=== PATIENT | male | born 1960 | race Caucasian/White ===

== ENCOUNTER → 2019-11-25 06:57 | Outpatient (CLI) | payer OTHER, SELFPAY ==
--- NOTE | ~2019-11-25 | XR_ITS ---
EXAMINATION: XR shoulder LT min 2V DATE: 11/25/2019 07:16 INDICATION: Left shoulder pain. TECHNIQUE: 4 views of left shoulder were obtained. COMPARISON: None. FINDINGS: Bone alignment is normal. No fracture. Joint spaces are well maintained. IMPRESSION: 1. Normal left shoulder. Reviewed, dictated and finalized at location A. 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 Normal left shoulder.
== END ==
PROVIDERS: PCP Family Medicine; Visit Provider Family Medicine
DX: M25.512 Pain in left shoulder (principal)
CPT/HCPCS: 73030

== ENCOUNTER → 2020-07-12 16:34 | Outpatient (CLI) | payer OTHER, SELFPAY ==
--- NOTE | ~2020-07-12 | XR_ITS ---
XR chest 2V 07/12/2020 16:48 Indication: Shortness of breath. Asthma. Procedure: 2 view chest Comparison: 09/29/2008 Findings: Heart size normal. Right basilar atelectasis. No focal pneumonia,, edema, pleural effusion or pneumothorax. No acute osseous abnormality. Impression: 1: Right basilar atelectasis. Reviewed, dictated and finalized at location B. Impression: 1: Right basilar atelectasis.
== END ==
PROVIDERS: PCP Family Medicine; Visit Provider Physician Assistant
DX: J45.909 Unspecified asthma, uncomplicated (principal); R06.02 Shortness of breath; J98.11 Atelectasis
CPT/HCPCS: 71046

== ENCOUNTER 2020-08-24 07:56 | Outpatient (CLI) | payer OTHER, SELFPAY ==
--- NOTE | 2020-08-25 10:31 | WPDPFTINT ---
PFT Interpretation PFT Interpretation: This PFT met all criteria for ATS standards and reproducibility FEV/FVC post bronchodilator 56% FEV1 69% or 2.09 liters FVC 89% or 3.77 liters No bronchodilator challenge was given. TLC 115% RV 145% RV/TLC 45 % DLCO 96% when adjusted for alveolar volume but not adjusted for hemoglobin Flow volume loops showed significant air flow obstruction Impression: Moderate airflow obstruction with air trapping. Unfortunately no bronchodilator challenge was ordered and hence this may be due Asthma or COPD. I would recommend repeating Spirometry with pre and post bronchdilator to better differentiate between the two. Clinical correlation is advised.
== END 2020-08-24 07:57 | disposition home or self-care (01) ==
PROVIDERS: PCP Family Medicine; Visit Provider Family Medicine
DX: J45.20 Mild intermittent asthma, uncomplicated (principal)
CPT/HCPCS: 94375; 94726; 94729

== ENCOUNTER 2020-10-10 09:07 | Outpatient (CLI) | payer OTHER, SELFPAY ==
--- NOTE | 2020-11-12 11:04 | WPDHOMESLEEP ---
Sleep Study - Home Unattended Date of Study: 10/10/20 Ordering Provider: Joni Wick PA-C Interpreting Provider: Alyson Wong MD Home Sleep Study Type: Apnea Link Air Height: 1.7 m Weight: 83.461 kg Body Mass Index: 28.8 Neck Circumference (inches): 15 [place]: 11 Reason for Sleep Study Vivid dreams that startle him from sleep, waking up feeling like he is falling Sleep History Gabe Gandhi is a 60 year old man Who has a chief complaint with sleep of waking up feeling startled like he is falling. He rarely snores loudly enough that others complain, occasionally snores. He frequently awakens at night with heartburn, belching or coughing. He occasionally has trouble sleeping with a cold. He frequently has breathing problems at night observed by others. He occasionally sweats excessively at night. He frequently notices his heart pounding or beating irregularly at night. He rarely falls asleep during the day. He does not fall asleep involuntarily, while driving, while exerting physical effort. He does not have loss of muscle tone with strong emotion. 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 He occasionally feels paralyzed on waking or falling asleep. He constantly has vivid dreamlike scenes upon awakening or falling asleep. He does not feel afraid to go to sleep. He never has nightmares. He frequently remembers his dreams. He frequently has racing thoughts. He frequently feels sad, depressed, and anxious. He occasionally has muscular tension. He occasionally notices parts of his body jerking. He does not kick at night, does not have crawling and aching feelings in his legs or have any type of leg pain during the night. He frequently has morning jaw pain. He rarely grinds his teeth at night. He occasionally is bothered by pain during the day. He rarely is awakened by pain at night. He rarely is wakes up feeling stiff in the morning with sore achy muscles. He frequently wakes up with pain in the neck and spine joints. He has dizziness, fatigue, concentration difficulties and takes antacids regularly. Normal bedtime is 10:00 p.m., falling asleep within 15-30 minutes. He wakes up multiple times throughout the night. While awake he will adjust pillows, drink some water. Sometimes his episodes of wake her very brief but occasionally he cannot return to sleep. He wakes the morning at 6:30 a.m.. On the weekends he goes to bed an hour later at 11:00 p.m. and wakes at the same time 6:30 a.m.. He estimates average of 7 hours of sleep at night. He takes naps on the weekend. A short nap can be refreshing. He occasionally awakens feeling refreshed. He frequently has daytime sleepiness. He feels better in the morning compared to other times of day. Habits: He never smoked tobacco. Caffeine 4 cups of decaf coffee daily. [facility] Past Medical History Medical History (Updated 11/12/20 @ 17:53 by Alyson Wong MD) Asthma Basal cell carcinoma (BCC) in situ of skin GERD without esophagitis Hypertension Skin cancer, basal cell Surgical History Surgical History History of removal of cyst Family History Family History Father Family history of cardiovascular disease Family history of coronary artery disease Mother Family history of congestive heart failure Sibling Multiple myeloma Social History Social History Smoking status: Never smoker Second hand tobacco smoke exposure: No Alcohol intake: current Drinks per week: 3 Substance use: never Substance use type: does not use Gender identity (if verbalized by the patient): Male Spiritual care concerns: Yes Agree to blood products: Yes Medications Home Medications Medication Instructions Recorded Confirmed Type loratadine 10 mg t
[2020-11-12 18:09] VITALS: BMI 28.8
== END 2020-10-10 09:08 | disposition home or self-care (01) ==
LOC: ANHCSM 09:09
PROVIDERS: PCP Physician Assistant; Visit Provider Physician Assistant
DX: G47.33 Obstructive sleep apnea (adult) (pediatric) (principal)
CPT/HCPCS: 95806

== ENCOUNTER 2021-01-13 09:33 | Outpatient (CLI) | payer OTHER, SELFPAY ==
--- NOTE | 2021-01-15 13:54 | WPDPFTINT ---
PFT Interpretation This PFT met all criteria for ATS standards and reproducibility FEV/FVC post bronchodilator 59% FEV1 65% FVC 86% TLC 97% RV 123% RV/TLC 40% DLCO 81% when adjusted for alveolar volume but not adjusted for hemoglobin Flow volume loops showed significant expiratory coving Impression: Moderate airflow obstruction with some air trapping. There was no significant response to bronchodilator therapy. When compared to a pulmonary function test from 08/24/2020 there has been no significant change. This pattern may be suggestive of COPD. Clinical correlation is advised. PFT Procedure Performed PFT Procedure Performed Spirometry with Pre/Post Bronchodilator Plethysmography (Lung Vol) Diffusing Cap (DLCO) Flow Vol Loop
== END 2021-01-13 09:34 | disposition home or self-care (01) ==
LOC: ANHPFT 09:34
PROVIDERS: PCP Physician Assistant; Visit Provider Physician Assistant
DX: R06.00 Dyspnea, unspecified (principal)
CPT/HCPCS: 94060; 94726; 94729

== ENCOUNTER 2021-02-15 13:02 | Outpatient (CLI) | payer OTHER, SELFPAY ==
--- NOTE | ~2021-02-15 | XR_ITS ---
EXAMINATION: XR lg joint inject/asp w image DATE: 02/15/2021 13:47 INDICATION: Left frozen shoulder TECHNIQUE: A time-out was performed to verify the patient's name, date of , and procedure to b e performed. The procedure including the risks, benefits, and alternatives was discussed with the pat ient. Risks discussed included bleeding and infection. The patient understood the risks and agreed to proceed. The skin overlying the rotator cuff interval of the left glenohumeral joint was prepped an d draped in usual sterile fashion. Anesthetic was administered with 1% lidocaine subcutaneously. A 22 G needle was advanced under fluoroscopic guidance into the joint. Injection of 1 mL of Omnipaque 240 confirmed intra-articular position of the needle. Subsequently, injectate consisting of 4 mL of a 3:1 mixture of 1% lidocaine 80 mg/mL Depo-Medrol for a total dose of 80 mg Depo-Medrol was instille d. Washout of contrast was seen confirming intra-articular administration. The needle was removed and the entry site was cleaned and dressed. There were no immediate complications. Fluoroscopy exposure time was 0.1 minutes. The total number of images was 1. FINDINGS: Real-time fluoroscopy demonstrates the needle in the left glenohumeral joint. Patient's hernando n prior to procedure:6/10. Patient's pain following the procedure: 11/30. IMPRESSION: 1. Left glenohumeral injection of local anesthetic and steroid with decrease in the patient's present ing pain. Reviewed, dictated and finalized at location A. IMPRESSION: 1. Left glenohumeral injection of local anesthetic and steroid with decrease in the patient's presenting pain.
== END 2021-02-15 13:03 | disposition home or self-care (01) ==
PROVIDERS: PCP Physician Assistant; Visit Provider Orthopaedic Surgery
DX: M75.02 Adhesive capsulitis of left shoulder (principal)
CPT/HCPCS: 20610; 77002; J1040; Q9966

== ENCOUNTER 2021-05-17 07:09 | Outpatient (CLI) | payer OTHER, SELFPAY ==
--- NOTE | 2021-06-13 08:38 | WPDSLEEPSTUD ---
Sleep Study Date of Study: 05/17/21 Ordering Provider: Joni Wick PA-C Interpreting Physician: Alyson Wong MD Sleep Study Type: CPAP Titration Height: 1.7 m Weight: 83.007 kg Body Mass Index: 28.6 Neck Circumference (inches): 15 [place]: 11 Reason for Sleep Study Obstructive sleep apnea * home sleep test 10/10/2020 with Apnea[facility] mild obstructive sleep apnea with an AHI of 8.1, minimum desaturation 89%; he presents for a CPAP titration. Sleep History Gabe Gandhi is a 61 year old man Who has a chief complaint with sleep of waking up feeling startled like he is falling. He rarely snores loudly enough that others complain, occasionally snores. He frequently awakens at night with heartburn, belching or coughing. He occasionally has trouble sleeping with a cold. He frequently has breathing problems at night observed by others. He occasionally sweats excessively at night. He frequently notices his heart pounding or beating irregularly at night. He rarely falls asleep during the day. He does not fall asleep involuntarily, while driving, while exerting physical effort. He does not have loss of muscle tone with strong emotion. 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 He occasionally feels paralyzed on waking or falling asleep. He constantly has vivid dreamlike scenes upon awakening or falling asleep. He does not feel afraid to go to sleep. He never has nightmares. He frequently remembers his dreams. He frequently has racing thoughts. He frequently feels sad, depressed, and anxious. He occasionally has muscular tension. He occasionally notices parts of his body jerking. He does not kick at night, does not have crawling and aching feelings in his legs or have any type of leg pain during the night. He frequently has morning jaw pain. He rarely grinds his teeth at night. He occasionally is bothered by pain during the day. He rarely is awakened by pain at night. He rarely is wakes up feeling stiff in the morning with sore achy muscles. He frequently wakes up with pain in the neck and spine joints. He has dizziness, fatigue, concentration difficulties and takes antacids regularly. Normal bedtime is 10:00 p.m., falling asleep within 15-30 minutes. He wakes up multiple times throughout the night. While awake he will adjust pillows, drink some water. Sometimes his episodes of wake her very brief but occasionally he cannot return to sleep. He wakes the morning at 6:30 a.m.. On the weekends he goes to bed an hour later at 11:00 p.m. and wakes at the same time 6:30 a.m.. He estimates average of 7 hours of sleep at night. He takes naps on the weekend. A short nap can be refreshing. He occasionally awakens feeling refreshed. He frequently has daytime sleepiness. He feels better in the morning compared to other times of day. Habits: He never smoked tobacco. Caffeine 4 cups of decaf coffee daily. [facility] Past Medical History Medical History Asthma Basal cell carcinoma (BCC) in situ of skin Benign hypertension GERD with esophagitis GERD without esophagitis Hypertension Mild intermittent asthma in adult without complication Skin cancer, basal cell Surgical History Surgical History History of removal of cyst Family History Family History Father Family history of cardiovascular disease Family history of coronary artery disease Mother Family history of congestive heart failure Sibling Multiple myeloma Social History Social History Smoking status: Never smoker Second hand tobacco smoke exposure: No Alcohol intake: current Drinks per week: 3 Alcohol use details: On occasion. Substance use: never Substance use type: does not use Gender i
[2021-06-14 14:43] VITALS: BMI 28.6
== END 2021-05-18 07:32 | disposition home or self-care (01) ==
LOC: ANHCSM 07:10
PROVIDERS: PCP Physician Assistant; Visit Provider Physician Assistant
DX: G47.33 Obstructive sleep apnea (adult) (pediatric) (principal); Z68.28 Body mass index [BMI] 28.0-28.9, adult
CPT/HCPCS: 95811

== ENCOUNTER 2023-05-10 00:37 | Day surgery (SDC) | payer OTHER, SELFPAY ==
[2023-04-24 13:21] VITALS: BMI 28.3
[2023-05-10 06:48] VITALS: BP 117/80; PULSE 64; RESP 19; TEMP 36.2; O2SAT 98
[2023-05-10] MEDS: LACTATED RINGERS 1,000 ML 150 ML IV CONT (06:58)
--- NOTE | 2023-05-10 07:34 | WPDANESEPPF ---
Anes - Initial Pre Proc Eval Procedure: Operation Date: 05/10/23 08:00 Proposed Procedures p Esophagogastroduodenoscopy & Screening Colonoscopy - Dimitri Recinos MD Date/Time: 05/10/23 07:34 Surgeon: Dimitri Recinos MD Pre Op Diagnosis: GERD, neoplasm screening Patient Data Age: 62 Gender: M Height: 1.7 m Weight: 81.3 kg Last Vital Signs Temp 97.2 F L 05/10/23 06:48 Pulse 64 05/10/23 06:48 Resp 19 05/10/23 06:48 BP 117/80 05/10/23 06:48 Pulse Ox 98 05/10/23 06:48 O2 Del Method Room Air 05/10/23 06:48 Allergies Allergy/AdvReac Type Severity Reaction Status Date / Time Penicillins Allergy Unknown Unknown Verified 05/10/23 06:47 Home Medications Medication Instructions Recorded Confirmed Type fluticasone propionate 50 1 spray intranasal DAILY 07/11/20 04/24/23 History mcg/actuation nasal spray,suspension (Flonase Allergy Relief) cetirizine 10 mg tablet (Zyrtec) 10 mg PO DAILY PRN Allergy Symptoms 07/12/21 04/24/23 History albuterol sulfate 90 mcg/actuation 1 inh inhalation Q4H PRN shortness 09/07/22 04/24/23 Rx aerosol inhaler (Ventolin HFA) of breath or wheezing #18 grams pantoprazole 40 mg tablet,delayed 40 mg PO QAM #90 tabs 10/14/22 04/24/23 Rx release fluticasone propionate 115 2 puff inhalation BID 04/24/23 04/24/23 History mcg-salmeterol 21 mcg/actuation HFA inhaler lisinopril 10 mg tablet 10 mg PO DAILY #90 tabs 05/08/23 05/10/23 Rx Patient hx anesthesia problems: none Family hx anesthesia problems: none Results Review: All pre-operative results and documents have been reviewed as part of the pre-operative evaluation. [facility] Past Medical History Medical History (Updated 03/21/23 @ 11:08 by Dimitri Recinos MD) Asthma Basal cell carcinoma (BCC) in situ of skin Benign hypertension Colon cancer screening Daytime somnolence [facility] (dyspnea on exertion) GERD with esophagitis GERD without esophagitis Hypertension Intermittent palpitations Mild intermittent asthma in adult without complication Skin cancer, basal cell Tachycardia Surgical History Surgical History History of removal of cyst Family History Family History Father Family history of cardiovascular disease Family history of coronary artery disease Mother Family history of congestive heart failure Sibling Multiple myeloma Social History Social History Smoking status: Never smoker Second hand tobacco smoke exposure: No Alcohol intake: former Substance use: never Substance use type: does not use Lack of Transportation: No Lack of Food: Never True Current Housing: I Have Housing Concerned About Future Housing: No Difficulty Paying Gas/Electric Bills: No Difficulty Paying for Meds: No Currently Unemployed: No Education: Master's Degree or Higher Difficulty w/ Childcare or Family Care: No Living arrangements: alone Occupation/Education: occupation 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 Informed Consent: The patient's anesthetic plan and its attendant risks and benefits were discussed with the patient/family/
--- NOTE | 2023-05-10 07:46 | PM.HPGS ---
History of Present Illness History of Present Illness Consent: Risks, benefits, and alternatives have been discussed and questions answered. Patient agrees to proceed with procedure. Chief complaint: GERD, neoplasm screening Narrative: Gabe Ramsey is a 62 year old male with gerd on pantoprazole, also needs screening colonoscopy Review of Systems Constitutional: Constitutional: Denies headache(s) and Denies weakness Eyes: Eyes: Denies blurry vision ENT: Reports Normal hearing present, Denies headache(s) and Denies neck pain Cardiovascular: Cardiovascular: Denies chest pain and Denies dyspnea Respiratory: Respiratory: Denies dyspnea Gastrointestinal: Gastrointestinal: Reports no additional gastrointestinal complaints Genitourinary: Genitourinary: Denies dysuria Musculoskeletal: Musculoskeletal: Denies neck pain Integumentary/Breasts: Skin/Breast: Denies dry skin Neurologic: Reports Normal hearing present, Denies headache(s) and Denies weakness Psychiatric: Psychiatric: Denies anxiety Endocrine: Endocrine: Denies change in body appearance Hematologic/Lymphatic: Hematologic/Lymphatic: Denies easy bleeding Allergic/Immunologic: Allergic/Immunologic: Denies urticaria PMFSH Past Medical History Medical History (Updated 03/21/23 @ 11:08 by Dimitri Recinos MD) Asthma Basal cell carcinoma (BCC) in situ of skin Benign hypertension Colon cancer screening Daytime somnolence [facility] (dyspnea on exertion) GERD with esophagitis GERD without esophagitis Hypertension Intermittent palpitations Mild intermittent asthma in adult without complication Skin cancer, basal cell Tachycardia Surgical History Surgical History History of removal of cyst Family History Family History Father Family history of cardiovascular disease Family history of coronary artery disease Mother Family history of congestive heart failure Sibling Multiple myeloma Social History Social History Smoking status: Never smoker Second hand tobacco smoke exposure: No Alcohol intake: former Substance use: never Substance use type: does not use Lack of Transportation: No Lack of Food: Never True Current Housing: I Have Housing Concerned About Future Housing: No Difficulty Paying Gas/Electric Bills: No Difficulty Paying for Meds: No Currently Unemployed: No Education: Master's Degree or Higher Difficulty w/ Childcare or Family Care: No Living arrangements: alone Occupation/Education: occupation 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 Gender identity (if verbalized by the patient): Male Spiritual care concerns: No Agree to blood products: Yes Meds Home Medications and Allergies Home Medications Medication Instructions Recorded Confirmed Type fluticasone propionate 50 1 spray intranasal DAILY 07/11/20 04/24/23 History mcg/actuation nasal spray,suspension (Flonase Allergy Relief) cetirizine 10 mg tablet (Zyrtec) 10 mg PO DAILY PRN Allergy Symptoms 07/12/21 04/24/23 History albuterol sulfate 90 mcg/actuation 1 inh inhalation Q4H PRN shortness 09/07/22 04/24/23 Rx aerosol inhaler (Ventolin HFA) of breath or wheezing #18 grams pantoprazole 40 mg tablet,delayed 40 mg PO QAM #90 tabs 10/14/22 04/24/23 Rx release fluticasone propionate 115 2 puff inhalation BID 04/24/23 04/24/23 History mcg-salmeterol 21 mcg/actuation HFA inhaler lisinopril 10 mg tablet 10 mg PO DAILY #90 tabs 05/08/23 05/10/23 Rx Allergies Allergy/AdvReac Type Severity Reaction Status Date / Time Penicillins Allergy Unknown Unknown Verified 05/10/23 06:47 Vital Signs Vital Signs - 24 hr 05/10/23 06:48 Temperature 97.2 F L Pulse Rate 64 Respiratory Rate 19 Blood Pressure 117/80 Pulse
--- NOTE | 2023-05-10 08:12 | SUR.OPER ---
EGD START 075, END 075 COLONOSCOPY START 801, END 811
[2023-05-10 08:16] VITALS: BP 96/63; PULSE 75; RESP 19; O2SAT 96
[2023-05-10 08:26] VITALS: BP 93/66; PULSE 72; RESP 21; O2SAT 96
[2023-05-10 08:36] VITALS: BP 97/68; PULSE 62; RESP 17; O2SAT 97
[2023-05-10 08:45] VITALS: BP 101/67; PULSE 65; RESP 20; O2SAT 98
== END 2023-05-10 08:59 | disposition home or self-care (01) ==
PROVIDERS: Visit Provider Internal Medicine Gastroenterology
PROC: 0DJ08ZZ Inspection of Upper Intestinal Tract, Via Natural or Artificial Opening Endoscopic (ICD-10-PCS; CPT 43235; principal; 2023-05-10 08:00)
DX: Z12.11 Encounter for screening for malignant neoplasm of colon (principal); D12.4 Benign neoplasm of descending colon; K64.8 Other hemorrhoids; K21.00 Gastro-esophageal reflux disease with esophagitis, without bleeding; I10 Essential (primary) hypertension; J45.20 Mild intermittent asthma, uncomplicated; Z85.828 Personal history of other malignant neoplasm of skin; Z79.51 Long term (current) use of inhaled steroids
CPT/HCPCS: 43239; 45385; 88305; J2704; J7120